=== PATIENT | female | born 1975 ===

== ENCOUNTER 2020-07-19 02:33 | Emergency (ER) | payer BC, OTHER ==
[2020-07-19] MEDS ORDERED: IBUPROFEN 400 MG TAB ONE (04:06)
--- NOTE | 2020-07-19 05:17 | EDPHYS ---
Physician Documentation [facility] Name: Alana Chou Age: 44 yrs Sex: Female : 1975 Arrival Date: 07/19/2020 Time: 02:35 Bed 15 Private MD: Kenney Montana B ED Physician Vasile Javed HPI: 07/19 04:31 This 44 yrs old Unknown Female presents to ER via Ambulatory with complaints of Foot mh7 Injury. 04:31 The patient presents with an injury. The complaints affect the right foot. Context: The mh7 problem was sustained at home, resulted from a mis-step by the patient, on a slippery surface, Mechanism of Injury: Inversion the patient can partially bear weight, the patient is able to ambulate, with moderate difficulty. Onset: The symptoms/episode began/occurred today. Modifying factors: The symptoms are alleviated by nothing, the symptoms are aggravated by weight bearing. Associated signs and symptoms: Pertinent positives: swelling, Pertinent negatives: calf tenderness, fever, nausea, numbness, rash, tingling, vomiting, warmth, weakness. Severity of symptoms: At their worst the symptoms were moderate, earlier today, in the emergency department the symptoms are unchanged. Historical: - Allergies: 03:17 No Known Allergies; fu 03:20 No Known Allergies; iw - Home Meds: 03:17 None [Active]; fu 03:20 None [Active]; iw - PMHx: 03:17 None; fu 03:20 None; iw - PSHx: 03:17 None; fu 03:20 None; iw - Social history:: Smoking status: Patient denies any tobacco usage or history of. ROS: 04:31 Constitutional: Negative for fever, chills, and weight loss. mh7 04:31 Eyes: Negative for injury, pain, redness, and discharge, ENT: Negative for injury, pain, and discharge, Neck: Negative for injury, pain, and swelling, Cardiovascular: Negative for chest pain, palpitations, and edema, Respiratory: Negative for shortness of breath, cough, wheezing, and pleuritic chest pain, Abdomen/GI: Negative for abdominal pain, nausea, vomiting, diarrhea, and constipation, Back: Negative for injury and pain, : Negative for injury, bleeding, discharge, and swelling, Skin: Negative for injury, rash, and discoloration, Neuro: Negative for headache, weakness, numbness, tingling, and seizure, Psych: Negative for depression, anxiety, suicide ideation, homicidal ideation, and hallucinations, Allergy/Immunology: Negative for hives, rash, and allergies, Endocrine: Negative for neck swelling, polydipsia, polyuria, polyphagia, and marked weight changes, Hematologic/Lymphatic: Negative for swollen nodes, abnormal bleeding, and unusual bruising. Exam: 04:31 Constitutional: This is a well developed, well nourished patient who is awake, alert, mh7 and in no acute distress. Head/Face: Normocephalic, atraumatic. 04:31 Skin: Warm, dry with normal turgor. Normal color with no rashes, no lesions, and no evidence of cellulitis. Neuro: Awake and alert, GCS 15, oriented to person, place, time, and situation. Cranial nerves II-XII grossly intact. Motor strength 5/5 in all extremities. Sensory grossly intact. Cerebellar exam normal. Normal gait. Psych: Awake, alert, with orientation to person, place and time. Behavior, mood, and affect are within normal limits. 04:31 Musculoskeletal/extremity: Extremities: noted in the right foot: pain, swelling, tenderness, ROM: intact in all extremities, Circulation is intact in all extremities. Sensation intact. Compartment Syndrome exam of affected extremity: is normal. no numbness, no tingling, no sensation deficit, no palor, no weak pulses, Joints: All joints appear normal with full range of motion. Weight bearing: Tendon exam: specific tendon testing normal through active and passive range of motion Vital Signs: 02:59 BP 123 / 70; Pulse 89; Resp 20; Temp 97.0; Pulse Ox 98% on R/A; Weight 90.72 kg (R); tt3 Height 5 ft. 6 in. (167.64 cm) (R); Pain 7/10; 04:00 BP 101 / 74; Pulse 86; Resp 18; Pulse Ox 92% on R/A; fu 02:59 Body Mass Index 32.28 (90.72 kg, 167.64 cm) tt3 Procedures: 06:27 Splinting: Splint applied to right leg using Orthoglass splint, applied by tech. fuller Examined by ga, post splint application: neurovascular intact, 2+ distal pulses palpable, brisk capillary refill noted, Patient tolerated well. MDM: 05:13 Differential diagnosis: fracture, sprain, arthritis. Data reviewed: vital signs, nurses [facility] notes, radiologic studies, plain films. Counseling: I had a detailed discussion with the patient and/or guardian regarding: the historical points, exam findings, and any diagnostic results supporting the discharge/admit diagnosis, radiology results, the need for outpatient follow up, a orthopedic surgeon, a capital project engineer, to return to the emergency department if symptoms worsen or persist or if there are any questions or concerns that arise at home. Response to treatment: the patient's symptoms have markedly improved after treatment. 05:16 Patient medically screened. [facility] 07/19 03:06 Order name: XRAY Ankle RIGHT 3 view tt3 07/19 03:06 Order name: Foot Right 3 View XRAY tt3 07/19 05:13 Order name: Splint - Posterior Leg; Complete Time: 05:25 [facility] Administered Medications: No medications were administered Disposition: 07/19/20 05:16 Discharged to Home. Impression: Fifth Metatarsal Fracture, Right Foot. - Condition is Stable. - Discharge Instructions: Metatarsal Fracture. - Prescriptions for Ibuprofen 800 mg Oral Tablet - take 1 tablet by ORAL route every 8 hours As needed take with food; 15 tablet. Tylenol- Codeine #3 300-30 mg Oral Tablet - take 2 tablets by ORAL route every 6 hours As needed; 30 tablet. - Medication Reconciliation Form, Thank You Letter, Antibiotic Education, Prescription Opioid Use form. - Follow up: Private Physician; When: 1 - 2 days; Reason: Worsening of condition, Recheck today's complaints, Continuance of care, Re-evaluation by your physician. Follow up: Kwaku Molina MD; When: 1 - 2 days; Reason: Worsening of condition, Recheck today's complaints. Follow up: Arnulfo Lorenzo DPM; When: 1 - 2 days; Reason: Worsening of condition, Recheck today's complaints. - Problem is new. - Symptoms have improved. Signatures: Dispatcher [employer] EDMS Krystyna Herrera RN RN iw Umadhay, Felix, RN RN fu Holmes, Maurice, MD MD [facility] Corrections: (The following items were deleted from the chart) 05:26 05:16 07/19/2020 05:16 Discharged to Home. Impression: Fifth Metatarsal Fracture, Right fu Foot. Condition is Stable. Forms are Medication Reconciliation Form, Thank You Letter, Antibiotic Education, Prescription Opioid Use. Follow up: Private Physician; When: 1 - 2 days; Reason: Worsening of condition, Recheck today's complaints, Continuance of care, Re-evaluation by your physician. Follow up: Dr. Kwaku Molina; When: 1 - 2 days; Reason: Worsening of condition, Recheck today's complaints. Follow up: Arnulfo Lorenzo; When: 1 - 2 days; Reason: Worsening of condition, Recheck today's complaints. Problem is new. Symptoms have improved. mh7
--- NOTE | 2020-07-19 05:17 | ER ---
Nurse's Notes [facility] Name: Alana Chou Age: 44 yrs Sex: Female : 1975 Arrival Date: 07/19/2020 Time: 02:35 Bed 15 Private MD: Kenney Montana B Diagnosis: Fifth Metatarsal Fracture, Right Foot Presentation: 07/19 02:57 Chief complaint: Patient states: went to take trash out, twisted her right ankle iw earlier this evening. Coronavirus screen: At this time, the client does not indicate any symptoms associated with coronavirus-19. Ebola Screen: Patient negative for fever greater than or equal to 101.5 degrees Fahrenheit, and additional compatible Ebola Virus Disease symptoms Patient denies exposure to infectious person. Patient denies travel to an Ebola-affected area in the 21 days before illness onset. No symptoms or risks identified at this time. Onset of symptoms was July 18, 2020. 02:57 Method Of Arrival: Ambulatory iw 02:57 Acuity: MILAN 4 iw Historical: - Allergies: 03:17 No Known Allergies; fu 03:20 No Known Allergies; iw - Home Meds: 03:17 None [Active]; fu 03:20 None [Active]; iw - PMHx: 03:17 None; fu 03:20 None; iw - PSHx: 03:17 None; fu 03:20 None; iw - Social history:: Smoking status: Patient denies any tobacco usage or history of. Screenin:20 Abuse screen: Denies threats or abuse. Nutritional screening: No deficits noted. fu Tuberculosis screening: No symptoms or risk factors identified. Assessment: 03:03 General: Appears in no apparent distress. Behavior is calm, cooperative, appropriate fu for age, Reports Denies fever, feeling ill, fatigue, chills. Pain: Complains of pain in right foot Pain does not radiate. Pain currently is 5 out of 10 on a pain scale. Pain began 30 min ago. Neuro: Level of Consciousness is awake, alert, obeys commands, Oriented to person, place, time, situation, Moves all extremities. Speech is normal, Facial symmetry appears normal. Cardiovascular: Denies chest pain, nausea, palpitations, syncope. Respiratory: Respiratory effort is even, unlabored, Respiratory pattern is regular. GI: No signs and/or symptoms were reported involving the gastrointestinal system. Derm: small abrasion on right knee. Derm: Skin is normal. Musculoskeletal: Capillary refill < 3 seconds, Reports pain in right foot. 03:52 Reassessment: Patient and/or family updated on plan of care and expected duration. Pain fu level reassessed. Patient is alert, oriented x 3, equal unlabored respirations, skin warm/dry/pink. Ibuprofen 800mg given p.o. 04:47 Reassessment: Dr. Javed in patient's room. fu Vital Signs: 02:59 BP 123 / 70; Pulse 89; Resp 20; Temp 97.0; Pulse Ox 98% on R/A; Weight 90.72 kg (R); tt3 Height 5 ft. 6 in. (167.64 cm) (R); Pain 7/10; 04:00 BP 101 / 74; Pulse 86; Resp 18; Pulse Ox 92% on R/A; fu 02:59 Body Mass Index 32.28 (90.72 kg, 167.64 cm) tt3 ED Course: 02:35 Patient arrived in ED. es 02:35 Kenney Montana MD is Private Physician. es 02:55 Juma Cheng, KENYATTA is Primary Nurse. fu 02:58 Triage completed. iw 03:15 Vasile Javed MD is Attending Physician. mh7 03:21 Patient has correct armband on for positive identification. Bed in low position. Pulse fu ox on. NIBP on. 03:31 XRAY Ankle RIGHT 3 view In Process Unspecified. EDMS 03:31 Foot Right 3 View XRAY In Process Unspecified. EDMS 05:12 Orthoglass splint: Posterior short lleg splint applied on right leg. oe 05:14 Kwaku Molina MD is Referral Physician. mh7 05:15 Arnulfo Lorenzo DPM is Referral Physician. mh7 05:23 No provider procedures requiring assistance completed. Patient did not have IV access fu during this emergency room visit. Administered Medications: No medications were administered Outcome: 05:16 Discharge ordered by . mh7 05:24 Discharged to home with crutches. fu 05:24 Condition: good 05:24 Discharge instructions given to patient, family, Instructed on discharge instructions, follow up and referral plans. Demonstrated understanding of instructions, follow-up care, Prescriptions given X 2. 05:26 Patient left the ED. fu Signatures: Dispatcher [employer] Miroslava Corral Irene, RN RN iw Espinosa, Orlando oe Umadhay, Felix, RN RN fu Holmes, Maurice, MD MD mh7 Trim, Jose tt3
[2020-07-19 05:32] VITALS: TEMP 97
[2020-07-19 05:34] VITALS: BP 101/74; O2SAT 92
--- NOTE | 2020-07-19 09:02 | RAD REPORT ---
EXAM DESCRIPTION: RAD - Ankle Right 3 View - 07/19/2020 3:31 am CLINICAL HISTORY: twisted ankle/foot COMPARISON: Foot Right 3 View dated 07/19/2020, no remote imaging FINDINGS: Two small bone fragments are present at the tip of the fibula. Both appear to be corticate d which would suggest normal variant or remote injury. Avulsion from the tip of the fibula is still p ossible if the patient has primarily lateral ankle pain or point tenderness. No other evidence for fr acture identified. No dislocation or periosteal reaction. No plantar spur. No joint effusion seen. No joint space narrowing. Soft tissue swelling is evident but baseline for the patient is unknown. IMPRESSION: No gross fracture deformity seen. Two small bone densities the tip of the fibula are fav ored to be old. Avulsion is possible if the patient has point tenderness or localizing symptoms. Probable lateral soft tissue swelling.
--- NOTE | 2020-07-19 09:04 | RAD REPORT ---
EXAM DESCRIPTION: RAD - Foot Right 3 View - 07/19/2020 3:31 am CLINICAL HISTORY: twisted ankle/foot COMPARISON: Ankle Right 3 View dated 07/19/2020, no remote imaging. FINDINGS: An oblique fracture is present through the distal shaft fifth metatarsal. There is dorsal and medial displacement of the distal fracture fragment up to 1 full shaft width. Fracture is comminu gloria with 1 small free fracture fragment seen along the medial margin. No other fracture changes seen. No acute joint finding. No air or foreign body in the soft tissues. IMPRESSION: Right fifth metatarsal fracture as detailed.
== END 2020-07-19 05:26 | disposition home or self-care (01) ==
LOC: ER 02:33
PROC: 2W3QX1Z Immobilization of Right Lower Leg using Splint (ICD-10-PCS; principal; 2020-07-19)
DX: S92.351A Displaced fracture of fifth metatarsal bone, right foot, initial encounter for closed fracture (principal); X58.XXXA Exposure to other specified factors, initial encounter; Y93.E9 Activity, other interior property and clothing maintenance
CPT/HCPCS: 99284